=== PATIENT | male | born 1935 | race Caucasian/White ===

== ENCOUNTER 2018-03-01 18:06 | Observation (INO) | payer OTHER, BC ==
[2018-03-01] MEDS ORDERED: cefTRIAXone 2 GM in STERILE WATER INJ 20 ML IV ONE (18:33)
[2018-03-01] MEDS ORDERED: VANCOMYCIN 1 GM in NS 250 ML IV ONE (18:34)
--- NOTE | 2018-03-01 18:40 | EDPHY ---
H & P Stated Complaint: right index finger swollen 3 days Time Seen by Provider: 03/01/18 18:20 HPI/ROS: This patient complains of right 2nd finger pain and swelling. He explains he was gardening to 3 days ago using compost fertilizer and did notice any injuries at that time. He washed his hands after guarding without gloves but over the next several hours developed some pain to the affected finger. It subsequently developed circumferential swelling and pain that is now severe intensity worse with movement. Describes throbbing pain 9/10 intensity. The minor injuries to the dorsum of the middle phalanx of the 2nd finger and the patient reports associated palmar aspect tenderness to the finger in the same region. He also reports feeling subjective fevers today. He comes in by private vehicle with his for further evaluation. ROS: No high fevers or chills. Patient also complains this evening of myalgias diffusely. No other constitutional symptoms. Pulmonary: No complaints Cardiovascular: No heart palpitations or lightheadedness. GI: No nausea or vomiting. He reports mild anorexia this evening. He ate a normal lunch but had soup for dinner. Integumentary: No skin rash elsewhere. 7 point ROS is otherwise negative. Source: Patient Exam Limitations: No limitations - Personal History Current Tetanus/Diphtheria Vaccine: Unsure (His is pretty certain that he has had a tetanus within this last 7-10 years but is unsure) Tetanus Vaccine Date: 2010 - Medical/Surgical History Hx Asthma: No Hx Chronic Respiratory Disease: No Hx Diabetes: No Hx Cardiac Disease: No Hx Renal Disease: No Hx Cirrhosis: No Hx Alcoholism: No Hx HIV/AIDS: No Hx Splenectomy or Spleen Trauma: No Other PMH: STENTS 2005, cardioversion x2 for afib. 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 Eyes: Pupils equal and round no pallor or injection. ENT, Mouth: Mucous membranes moist. Respiratory: There are no retractions, lungs are clear to auscultation. Cardiovascular: Regular rate and rhythm. With 2 to 3/6 holosystolic murmur. Capillary refill is maintained in the affected finger. Neurological: GCS 15. No sensory or motor deficits in the affected finger. Skin: Warm and dry, no rashes. Musculoskeletal: Neck is supple nontender. Extremities normal in atraumatic except for right 2nd finger Right 2nd finger: Patient has moderate circumferential swelling to the right 2nd finger with an area of erythema and tenderness to the dorsum overlying the middle phalanx with associated exquisite tenderness to the palmar aspect of the finger. While the patient holds the finger and slight flexion he denies pain with passive extension. He does have tenderness just proximal to the 2nd metacarpal phalangeal joint on the palmar aspect of the hand but no significant swelling in this area. Psychiatric: Mood and affect are normal DIFFERENTIAL DIAGNOSIS: After history and physical exam differential diagnosis was considered for finger cellulitis, puncture wound, retained foreign body, early flexor tenosynovitis, osteomyelitis Constitutional: Initial Vital Signs Temperature (C) 37.6 C 03/01/18 18:18 Heart Rate 72 03/01/18 18:18 Respiratory Rate 18 03/01/18 18:18 Blood Pressure 167/88 H 03/01/18 18:18 O2 Sat (%) 91 L 03/01/18 18:18 O2 Delivery Mode Room Air Allergies/Adverse Reactions: fluticasone propionate [From Flovent Diskus] Allergy (Verified 03/01/18 18:24) [id number]-[id number]-Tii Reductase Inhibitor Allergy (Verified 03/01/18 18:24) Home Medications: Medication Instructions Recorded Aspirin EC [Aspirin EC 81 mg (*)] 81 mg PO HS 07/16/14 Cholecalciferol Vit D3 [Vitamin D3 1,000 units PO HS 07/16/14 (*)] Herbals/Supplements -Info Only 1 ea PO DAILY 07/16/14 Multivit-Min/FA/Lycopene/Lut 1 each PO HS 07/16/14 [Centrum Silver Tablet] Tensed-3 Fatty Acids [Fish Oil 1000 1,000 mg PO HS 07/16/14 mg (*)] Rapatha 03/01/18 Medical Decision Making - Diagnostics EKG Interpretation: 12 lead EKG indication history of coronary disease and stent with systolic murmur-preop Sinus rhythm at 60 Intervals: P R of 200, QRS of 116, QTC of 408 [place]: P of -13, QRS of -53, T of -17 ST segments: Normal throughout Overall assessment: sinus rhythm with left anterior fascicular block Imaging Results: Imaging Impressions Finger X-Ray 03/01/18 18:34 Impression: No evidence of fracture, dislocation or radiopaque embedded foreign body. Finger x-rays: Soft tissue swelling with out evidence of foreign body or or other abnormalities by my interpretation. ED Course/Re-evaluation: IV ceftriaxone 1 g Toradol 15 mg IV Vancomycin 1 g IV Discussion: Patient with presentation consistent with infectious flexor tenosynovitis-minor injury while gardening followed by fusiform swelling, tenderness along the flexor tendon sheath, low-grade fevers warranting aggressive early treatment. I spoke with Dr. Tom Lyon-hand specialist on-call who evaluated the patient in the emergency department and would like to proceed with operative debridement for infectious flexor tenosynovitis. Dr. Lyon performed a digital block on the patient for comfort. Placed a bed order for med surge. Patient will proceed directly to preop holding. His will drive him to the hospital. At the time discharge patient is stable with some improvement in the finger pain and understands the NPO status plan for proceed directly to preop with planned surgical debridement by Dr. Lyon. - Data Points Laboratory Results: Laboratory Results 03/01/18 18:40 03/01/18 18:40 03/01/18 03/01/18 18:40 18:40 WBC 7.97 10^3/uL 10^3/uL (3.80-9.50) RBC 4.30 10^6/uL L 10^6/uL (4.40-6.38) Hgb 13.7 g/dL g/dL (13.7-17.5) Hct 39.5 % L % (40.0-51.0) MCV 91.9 fL fL (81.5-99.8) MCH 31.9 pg pg (27.9-34.1) MCHC 34.7 g/dL g/dL (32.4-36.7) RDW 12.3 % % (11.5-15.2) Plt Count 219 10^3/uL 10^3/uL (150-400) MPV 8.8 fL fL (8.7-11.7) Neut % (Auto) 77.8 % H % (39.3-74.2) Lymph % (Auto) 11.8 % L % (15.0-45.0) [place] % (Auto) 8.7 % % (4.5-13.0) Eos % (Auto) 1.0 % % (0.6-7.6) Baso % (Auto) 0.3 % % (0.3-1.7) Nucleat RBC Rel Count 0.0 % % (0.0-0.2) Absolute Neuts (auto) 6.21 10^3/uL 10^3/uL (1.70-6.50) Absolute Lymphs (auto) 0.94 10^3/uL L 10^3/uL (1.00-3.00) Absolute Monos (auto) 0.69 10^3/uL 10^3/uL (0.30-0.80) Absolute Eos (auto) 0.08 10^3/uL 10^3/uL (0.03-0.40) Absolute Basos (auto) 0.02 10^3/uL 10^3/uL (0.02-0.10) Absolute Nucleated RBC 0.00 10^3/uL 10^3/uL (0-0.01) Immature Gran % 0.4 % % (0.0-1.1) Immature Gran # 0.03 10^3/uL 10^3/uL (0.00-0.10) ESR 8 MM/HR MM/HR (0-20) Sodium 138 mEq/L mEq/L (135-145) Potassium 3.9 mEq/L mEq/L (3.5-5.2) Chloride 101 mEq/L mEq/L (97-110) Carbon Dioxide 26 mEq/l mEq/l (22-31) Anion Gap 11 mEq/L mEq/L (8-16) BUN 28 mg/dL H mg/dL (7-23) Creatinine 0.8 mg/dL mg/dL (0.7-1.3) Estimated GFR > 60 Glucose 128 mg/dL H mg/dL (70-100) Calcium 9.0 mg/dL mg/dL (8.5-10.4) Medications Given: Discontinued Medications Acetaminophen (Tylenol) 975 mg PO EDNOW ONE Stop: 03/01/18 18:51 Last Admin: 03/01/18 19:08 Dose: 975 mg Ceftriaxone Sodium 2 gm/ (Sterile Water) 20 mls @ 300 mls/hr IV EDNOW ONE PRN Reason: Protocol Stop: 03/01/18 18:36 Last Admin: 03/01/18 19:11 Dose: 20 mls Vancomycin HCl 1 gm/ Sodium (Chloride) 250 mls @ 250 mls/hr IV EDNOW ONE PRN Reason: Protocol Stop: 03/01/18 19:33 Last Admin: 03/01/18 19:15 Dose: 250 mls Ketorolac Tromethamine (Toradol) 15 mg IVP EDNOW ONE Stop: 03/01/18 19:03 Last Admin: 03/01/18 19:09 Dose: 15 mg Departure - Departure Disposition: [facility] Inpatient Acute Clinical Impression: Suppurative tenosynovitis of flexor tendon of right hand Condition: Good Instructions: Tenosynovitis (ED) Additional Instructions: Diagnosis: Infectious tenosynovitis Plan: Nothing to eat or drink. Proceed directly to the preop area at [facility] for surgery with Dr. Lyon Referrals: Verito Tapia MD [Primary Care Provider] - As per Instructions Percy Lyon MD [Medical Doctor] - As per Instructions
[2018-03-01 18:46] LABS: PLATELET COUNT 219 10^3/uL (150-400)
[2018-03-01] MEDS ORDERED: ACETAMINOPHEN 325 MG TAB PO ONE (18:50)
[2018-03-01] MEDS ORDERED: cefTRIAXone 2 GM VIAL ONE (18:51)
[2018-03-01] MEDS ORDERED: KETOROLAC 15 MG/1 ML SDV IVP ONE (19:02)
--- NOTE | 2018-03-01 19:38 | CPEKG ---
Heart Rate: 60 RR Interval: 1000 P-R Interval: 200 QRSD Interval: 116 QT Interval: 408 QTC Interval: 408 P [place]: -13 QRS [place]: -53 T Wave [place]: -17 EKG Severity - ABNORMAL ECG - EKG Impression: SINUS RHYTHM EKG Impression: LEFT ANTERIOR FASCICULAR BLOCK Electronically Signed By: Angel Gee 01-Mar-2018 19:43:01
--- NOTE | 2018-03-01 20:42 | GHP ---
[f rep st] PREOP HISTORY AND PHYSICAL DATE OF ADMISSION: 03/01/2018 PREOPERATIVE DIAGNOSES: Flexor tenosynovitis, right index finger. HISTORY OF PRESENTING COMPLAINT: The patient is an 82-year-old man who was working in the [employer] days ago and does not really recall any particular injury to the finger, but began to note incre asing swelling and pain in the finger over the subsequent days. He presents to [facility] today with exquisite tenderness and pain in the right index finger. PAST MEDICAL HISTORY: Generally unremarkable. He has hypercholesterolemia and atherosclerotic heart disease with no history of MIs, but did have placement of stent several years ago. He is in the cou rse of being worked up for a murmur at this point. MEDICATIONS: He takes an aspirin 80 mg daily and Repatha injection every 2 weeks for his cholesterol . ALLERGIES: He is sensitive to statins with history of rhabdomyolysis. PHYSICAL EXAMINATION: GENERAL: He is a pleasant, healthy, and vigorous looking 82-year-old male. V ITAL SIGNS: Stable. He is afebrile. CARDIOVASCULAR: A holosystolic murmur. Heart rate is regular . RESPIRATORY: Clear with good air entry. EXTREMITIES: Fusiform swelling of the right index finge r with erythema particularly notable over the dorsum on the middle segment without any apparent fluct uance, and significant tenderness and swelling on the volar surface with exquisite tenderness to palp ation on the volar surface. The finger held in a flexed posture with extreme pain on active extensio n. The swelling extends back as far as the proximal end of the proximal phalanx. IMPRESSION: Tenosynovitis right index finger. PLAN: Open irrigation in the operating room, probably under local anesthetic. /[id number]/MODL
[2018-03-01] MEDS ORDERED: BUPIVACAINE 0.5% 30 ML SDV ONE (21:00)
[2018-03-01] MEDS ORDERED: POLYMYXIN B SULFATE 500,000 UNIT/10 ML SYR IRR ONE (21:01)
[2018-03-01] MEDS ORDERED: LIDOCAINE/EPINEPHRINE 0.5% 50 ML MDV ONE (21:11)
[2018-03-01] MEDS ORDERED: LIDOCAINE 1% 300 MG/30 ML SDV ONE (21:13)
[2018-03-01] MEDS ORDERED: TDAP ADULT 0.5 ML INJ (BOOSTRIX) IM ONE (23:30)
[2018-03-01] MEDS: HYDROCODONE/APAP 5/325 TAB PO PRN (23:58)
[2018-03-02] MEDS: HYDROCODONE/APAP 5/325 TAB PO PRN ×4 (04:03→16:09)
--- NOTE | 2018-03-02 04:58 | GOP ---
[f rep st] OPERATIVE REPORT DATE OF OPERATION: 03/01/2018 SURGEON: Percy Lyon MD PREOPERATIVE DIAGNOSIS: Flexor tenosynovitis, right index finger. POSTOPERATIVE DIAGNOSIS: Flexor tenosynovitis, right index finger. PROCEDURE PERFORMED: Incision, drainage, and irrigation of right index finger flexor tendon sheath. FINDINGS: ESTIMATED BLOOD LOSS: Less than 5 mL. DESCRIPTION OF PROCEDURE: With patient lying supine under straight local anesthesia, incisions were made at the distal palmar crease in the ray of the index finger and at the DIP joint crease of the in dex finger on the volar surface. Dissection was taken down carefully with spreading technique to the tendon sheath at both locations. The A1 lucrecia was identified at the proximal incision and was open ed up. Some boggy synovial fluid came out, and this was not cultured. At the distal incision, cloud y looking fluid was encountered and this was swabbed for Gram stain and culture. A 20-gauge Angiocath was passed out from the proximal incision distally into the finger and irrigatio n with bacitracin and saline was carried out using about 30 cc of fluid through the finger and throug h the distal incision. An additional incision was made on the dorsal surface on the middle segment o f the finger, where there was some discoloration of the skin, and at this location again a swab was t aken, but really no purulent looking material was encountered. In the distal incision, a quarter-inc h Ayan drain segment was placed and sutured with 5-0 Prolene, and the remainder of the incision wa s closed with 5-0 Prolene. The proximal incision, the 20-gauge Angiocath was sutured in position wit h 4-0 Prolene, and the rest of the incision sutured with 4-0 Prolene. I again confirmed that irrigat ion through the catheter allowed free flow of saline out through the distal incision. A dressing of Xeroform and gauze was applied. A fiberglass volar slab type splint was applied. The procedure was tolerated well. /[id number]/MODL
--- NOTE | 2018-03-02 08:45 | POSTOPPROG ---
Post Op Note Date of Operation: 03/02/18 Surgeon: Percy Lyon Anesthesia: Local (Specify) (lidocaine block) Pre-op Diagnosis: flexor tenosynovitis right index Post-op Diagnosis: same Procedure: drain and irrigate same Inf/Abcess present in the surg proc area at time of surgery?: Yes Depth: Deep Incisional (Fascial) EBL: Minimal Drains: Ayan (none)
--- NOTE | 2018-03-02 08:47 | SOAPPROG ---
SOAP Progress Note Assessment/Plan: Assessment:doing fine Plan: discharge later today on po antibiotic 03/02/18 08:46 Subjective: pain much better Objective: sensation returned . tenderness gone. moving without pain. gram stain negative Vital Signs Temp Pulse Resp BP Pulse Ox 36.8 C 58 L 16 116/66 93 03/02/18 06:10 03/02/18 06:10 03/02/18 06:10 03/02/18 06:10 03/02/18 06:10 Microbiology 03/01/18 21:53 Gram Stain - Final Finger - Eswab 03/01/18 21:48 Gram Stain - Final Finger - Eswab 03/01/18 03/02/18 03/03/18 05:59 05:59 05:59 Intake Total 920 Output Total 5 Balance 915 ICD10 Worksheet Patient Problems: Problems Problem Status Onset Suppurative tenosynovitis of flexor tendon of right hand Acute Atrial fibrillation with RVR Acute Pneumonia Acute
[2018-03-02] MEDS ORDERED: AMPICILLIN/SULBACTAM 1.5 GM in NS 50 ML IV SCH (09:00)
[2018-03-02] MEDS ORDERED: MULTIVITAMINS 1 EACH TAB PO SCH (09:00)
[2018-03-02] MEDS ORDERED: AMPICILLIN/SULBACTAM 1.5 GM VIAL IV SCH ×2 (10:00→16:00)
[2018-03-02 18:00] VITALS: BP 143/76
[2018-03-02] MEDS ORDERED: CHOLECALCIFEROL VIT D3 1,000 UNITS TAB PO SCH (21:00)
[2018-03-02] MEDS ORDERED: OMEGA-3 FATTY ACIDS 1,000 MG CAP PO SCH (21:00)
[2018-03-02] MEDS ORDERED: ASPIRIN EC 81 MG TAB PO SCH (21:00)
[2018-03-02] MEDS ORDERED: AMOXICILLIN/CLAVULANATE POT 875/125 MG TAB PO SCH (21:00)
== END 2018-03-02 17:10 | disposition home or self-care (01) ==
LOC: CED 18:06 → CEDHOLD 19:38 → UNDOADMOB 19:43 → FOB 23:06
PROVIDERS: ADMIT Plastic Surgery; ATTEND Plastic Surgery
DX: M65.841 Other synovitis and tenosynovitis, right hand (principal); I34.0 Nonrheumatic mitral (valve) insufficiency; E78.5 Hyperlipidemia, unspecified; I25.10 Atherosclerotic heart disease of native coronary artery without angina pectoris; R01.1 Cardiac murmur, unspecified; Z79.82 Long term (current) use of aspirin; Z95.5 Presence of coronary angioplasty implant and graft; Z23 Encounter for immunization
CPT/HCPCS: 26020; 64450; 73140; 90471; 90715; 93005; 96365; 96375; 99285; J0171; J0295; J0696; J1885; J3370; 80048-PO; 85025-PO; 85652-PO

== ENCOUNTER → 2018-03-11 | Outpatient (CLI) | payer OTHER, BC | LOC: BHFA 11:30 | PROVIDERS: ATTEND Internal Medicine Cardiovascular Disease | DX: R01.1 Cardiac murmur, unspecified (principal) ==